=== PATIENT | female | born 1980 | race Two or more races ===

== ENCOUNTER 2020-06-06 12:56 | Outpatient (REF) | payer OTHER, SELFPAY ==
--- NOTE | ~2020-06-06 | XR_ITS ---
EXAMINATION: XR ABDOMEN KUB CLINICAL INDICATION: Constipation. Slow transit. COMPARISON: None TECHNIQUE: AP view of the abdomen. FINDINGS: There is a nonobstructive bowel gas pattern. Gas and stool are seen throughout the colon with mild colonic stool burden, most prominent at the transverse colon. No suspicious calcifications. Phleboliths overlie the pelvis. The lung bases are clear. No acute osseous abnormality. XR/XR KUB IMPRESSION: Mild colonic stool burden.
[2020-06-06 15:23] LABS: MANUAL DIFF FLAG NO
[2020-06-06 15:32] LABS: Basophils Percent Auto 0.3 % (0-2); Eosinophils Absolute Auto 0.1 X10*3/uL (0.0-0.4); Eosinophils Percent Auto 1.2 % (0-4); Hematocrit 37.1 % (37-47); Hemoglobin 12.3 g/dl (12.0-16.0); Imm Gran Abs Auto 0.01 X10*3/uL (0.00-0.03); Imm Gran Pct Auto 0.2 % (0.0-0.4); Lymphocytes Absolute Auto 3.1 X10*3/uL (1.2-4.9); Lymphocytes Percent Auto 47.5 % (20-40); Mean Corpuscular HGB Conc 33.2 g/dl (31.0-35.0); Mean Corpuscular Hemoglobin 30.5 pg (27.0-33.0); Mean Corpuscular Volume 92.1 fL (80-98); Mean Platelet Volume 10.7 fL (9.4-12.3); Monocytes Absolute Auto 0.4 X10*3/uL (0.1-1.2); Monocytes Percent Auto 6.1 % (2-11); Neutrophils Percent Auto 44.7 % (45-73); Platelet Count 233 X10*3/uL (160-400); Red Blood Count 4.03 X10*6/uL (4.20-5.50); Red Cell Distribution Width 12.6 % (11.0-16.0); White Blood Count 6.6 X10*3/uL (4.8-10.8)
[2020-06-06 15:49] LABS: Glucose Urine UA NEG (NEG); Leukocyte Esterase Urine NEG (NEG); Nitrite Urine NEG (NEG); PH 6.5 (5.0-8.0); Urine Blood 3+ (NEG); Urine Ketones NEG (NEG); Urine Protein NEG (NEG-TRACE)
[2020-06-06 15:52] LABS: Appearance Urine HAZY; Color Urine YELLOW
[2020-06-06 16:00] LABS: Alanine Aminotransferase 13 U/L (0-31); Albumin Level 4.4 g/dL (3.5-5.0); Alkaline Phosphatase 70 U/L (39-117); Anion Gap 12 (12-20); Aspartate Amino Transferase 16 U/L (5-31); Bilirubin Total 0.5 mg/dL (0.0-1.0); Blood Urea Nitrogen 13 mg/dL (9-16); C Reactive Protein 0.23 mg/dL (< or = 0.50); Carbon Dioxide 28 mmol/L (22-29); Chloride 104 mmol/L (96-108); Estimated Glomerular Filt Rate > 60; Glucose Random 88 mg/dL (60-115); Potassium 4.2 mmol/L (3.3-5.1); Sodium 140 mmol/L (135-145); Total Protein 7.5 g/dL (6.5-8.0)
[2020-06-06 16:03] LABS: RBC Urine TNTC /HPF (0); Squamous Epithelial Cell Urine 3+ /LPF; WBC Urine 0-2 /HPF (0-4)
[2020-06-06 16:21] LABS: Ferritin 20 ng/mL (10-250); TSH reflex Free T4 1.41 uIU/mL (0.32-4.0)
[2020-06-06 16:33] LABS: Erythrocyte Sedimentation Rate 18 MM/HR (0-20)
[2020-06-07 04:29] LABS: HBS Num1 0.54 mIU/mL (0-7.99); HBc Num1 0.06 S/CO (0.00-0.79); Hepatitis B Core Antibody Nonreactive (Nonreactive); ~Hepatitis B Surface Antibody NONREACTIVE (Nonreactive)
[2020-06-07 04:39] LABS: HBsAGNum1 0.13 S/CO (0.00-0.99); Hepatitis B Surface Antigen Negative (Negative); ~HepC Num1 0.07 S/CO (0.00-0.79); ~Hepatitis C Antibody Nonreactive (Nonreactive)
[2020-06-07 13:32] LABS: Transglutaminase Ab IgG 1 U/mL; Transglutaminase IgA 1 U/mL
[2020-06-07 15:07] LABS: Gliadin Deamidated IgA Ab 7 Units; Gliadin Deamidated IgG Ab 2 Units
[2020-06-08 07:29] LABS: Hepatitis A Antibody IgM 0.52 Index (0-0.79); ~Hepatitis A Antibody IgM Nonreactive (Nonreactive)
[2020-06-08 14:57] LABS: H Pylori Breath Test DETECTED (NOT DETECTED)
[2020-06-08 16:57] LABS: IgA 246 mg/dL (47-310); IgG 1192 mg/dL (600-1640); IgM 181 mg/dL (50-300)
[2020-06-09 00:07] LABS: Zinc 86 mcg/dL (60-130)
[2020-06-10 17:32] LABS: Histamine Plasma <1.5 ng/mL (< OR = 1.8)
== END 2020-06-06 12:57 | disposition home or self-care (01) ==
LOC: HO.LAB 12:56
PROVIDERS: PCP Physician Assistant; Visit Provider Internal Medicine Gastroenterology
DX: R10.33 Periumbilical pain (principal); K59.01 Slow transit constipation; R10.11 Right upper quadrant pain; R68.83 Chills (without fever); R30.0 Dysuria; Z86.16 Personal history of COVID-19; Z11.0 Encounter for screening for intestinal infectious diseases
CPT/HCPCS: 36415; 74018; 80053; 81001; 82728; 82784; 83013; 83088; 83516; 84443; 84630; 85025; 85652; 86003; 86140; 86704; 86706; 86709; 86803; 87340; 99202

== ENCOUNTER 2020-06-17 14:04 | Outpatient (REF) | payer OTHER, SELFPAY ==
--- NOTE | ~2020-06-17 | CT_ITS ---
EXAMINATION: CT ENTEROGRAPHY ABDOMEN AND PELVIS WITH CONTRAST CLINICAL INFORMATION: Periumbilical pain COMPARISON: None TECHNIQUE: Study performed with oral VoLumen (1350 mL) and 480 mL of water to distend the abdomen. The patient was injected with 85 mL Omnipaque 350 intravenous contrast which was administered without adverse effect. Coronal and sagittal reformatted images were obtained at the technologist's workstation. This CT examination was performed using dose optimization techniques as appropriate, variously including the following: *Automated exposure control *Adjustment of mA and/or kV according to patient size (this includes techniques or standardized protocols for targeted exams where dose is matched to indication/reason for exam; i.e. extremities or head) *Use of iterative reconstruction technique DLP: 543 mGy-cm FINDINGS: GASTROINTESTINAL FINDINGS: Stomach: Well-distended and normal in appearance. Small intestine: Satisfactorily distended and normal in appearance. Large intestine: There is stool throughout the colon suggestive of constipation. The large intestine is otherwise unremarkable.. No perirectal changes demonstrated. The appendix is is not identified. Additional findings: No abnormal enhancement of the vasa recta or significant mesenteric or retroperitoneal lymphadenopathy is seen. No abdominal abscess or fistulous tract demonstrated. ABDOMINAL AND PELVIC CT FINDINGS: Liver, gallbladder, biliary tract: Normal Pancreas: Normal Spleen: Normal Adrenal glands and kidneys: Normal Ureters and bladder: Normal Lymphovascular structures: There are structures are normal Bones: Normal Lung bases: Normal CT/CT enterography IMPRESSION: Constipation otherwise normal CT enterography exam.
[2020-06-17] MEDS: Sorbitol/Mannit/Xanth Imaging 500 ML LIQUID PO ×3 (15:50→15:51)
== END 2020-06-17 14:05 | disposition home or self-care (01) ==
LOC: HO.US 14:04
PROVIDERS: PCP Physician Assistant Medical; Visit Provider Internal Medicine Gastroenterology
DX: R10.33 Periumbilical pain (principal); K59.01 Slow transit constipation; R10.11 Right upper quadrant pain
CPT/HCPCS: 74177; Q9967

== ENCOUNTER → 2020-07-13 12:41 | Outpatient (REF) | payer OTHER, SELFPAY ==
--- NOTE | ~2020-07-13 | NM_ITS ---
EXAMINATION: BILIARY TRACT IMAGING STUDY WITH CCK CLINICAL INFORMATION: Right upper quadrant pain, epigastric pain.. COMPARISON: No previous biliary scan is available for comparison. CT enterography of the abdomen and pelvis dated 06/17/2020 is available for comparison.. TECHNIQUE: Serial gamma scintillation camera images were obtained over the abdomen for a total observation period of 93 minutes following the intravenous administration of 5.0 mCi Tc-99m breath and. FINDINGS: There is good concentration of activity in the liver by 5 minutes post injection. Biliary activity is visualized by 20 minutes. The gallbladder is well visualized by 25 minutes. Small bowel is well visualized by 40 minutes. At 90 minutes post radiopharmaceutical injection, a 30-minute infusion of 1.6 micrograms Sincalide was then begun and an additional 30 minutes of images were obtained. There is only minimal gallbladder emptying during the sincalide infusion. At the end of the study there is abnormal retention of activity in the gallbladder, but there is almost complete clearance of activity from the liver. Diffuse small bowel activity is also visualized at this time. The calculated gallbladder ejection fraction is 20% (normal gallbladder ejection fraction is greater than 35%). NM/NM hepatobiliary w pharm IMPRESSION: 1. Visualization of the gallbladder is evidence of a patent cystic duct and strong evidence against the diagnosis of acute cholecystitis. The common bile duct is patent. Liver function appears normal. 2. Poor gallbladder emptying and a low gallbladder ejection fraction are evidence of impaired gallbladder contractility and most likely due to chronic cholecystitis.
== END ==
LOC: HO.NUCMED 12:41
PROVIDERS: PCP Physician Assistant Medical; Visit Provider Internal Medicine Gastroenterology
DX: R10.11 Right upper quadrant pain (principal)
CPT/HCPCS: 78227; A9537; J2805